=== PATIENT | female | born 1955 | race Hispanic/Latino ===

== ENCOUNTER 2018-10-20 06:27 | Observation (INO) | payer OTHER ==
[2018-10-15 11:32] LABS: BASOPHILS % 0.4 % (0.0-1.0); EOSINOPHILS # (AUTO) 0.1 (0.0-0.4); EOSINOPHILS % 1.1 % (0.0-6.0); HEMATOCRIT 43.1 % (34.2-44.1); HEMOGLOBIN 14.2 g/dL (12.0-16.0); LYMPHOCYTES # (AUTO) 1.3 (1.0-3.2); LYMPHOCYTES % 16.4 % (18.0-39.1); MEAN CORPUSCULAR HEMOGLOBIN 26.7 pg (28-32); MEAN CORPUSCULAR HGB CONC 32.9 g/dL (31-35); MEAN CORPUSCULAR VOLUME 81.2 fL (81-99); MONOCYTES # (AUTO) 0.4 (0.2-0.8); MONOCYTES % 4.9 % (4.4-11.3); NEUTROPHILS # (AUTO) 6.2 (2.1-6.9); NEUTROPHILS % 76.7 % (38.7-80.0); PLATELET COUNT 330 x10e3/uL (140-360); RED BLOOD COUNT 5.31 x10e6/uL (3.6-5.1); RED CELL DISTRIBUTION WIDTH 14.2 % (11.7-14.4)
[2018-10-15 11:46] LABS: BLOOD UREA NITROGEN 15 mg/dL (7-26); BUN/CREATININE RATIO 21 (6-25); CALCIUM 10.2 mg/dL (8.4-10.2); CARBON DIOXIDE 26 mmol/L (22-29); CHLORIDE 101 mmol/L (98-107); CREATININE, SERUM 0.72 mg/dL (0.57-1.11); EST GLOMERULAR FILTRATION RATE > 60 ML/MIN (60-); GLUCOSE 136 mg/dL (74-118); SODIUM 138 mmol/L (136-145)
[~2018-10-20] VITALS: Ht 162.6 cm; Wt 121.6 kg
[~2018-10-20 06:27] MED LIST: AMLODIPINE BESY10 MG PO; HYDROCHLOROTHIA25 MG PO; LISINOPRIL10 MG PO; METFORMIN HCL500 MG PO
[2018-10-20] MEDS ORDERED: CEFAZOLIN SOD 2 GM/D5W 50ML 50 ML IV ONE (06:46)
[2018-10-20] MEDS ORDERED: PROMETHAZINE HCL (IM) 25 MG/ML VIAL ONE (09:01)
[2018-10-20] MEDS ORDERED: DEXTROSE 50% SYRINGE 50 ML IV PRN (10:15)
[2018-10-20] MEDS ORDERED: ONDANSETRON HCL INJ 2MG/ML 2ML 2 MG/ML VIAL IV PRN (10:15)
[2018-10-20] MEDS ORDERED: MORPHINE SULFATE INJ 4 MG/ML INJ 1ML IV PRN (10:15)
[2018-10-20] MEDS ORDERED: FENTANYL CITRATE/PF 100MCG/2 ML INJ ONE ×2 (10:25→12:43)
--- NOTE | 2018-10-20 11:16 | Operative Report ---
DATE OF PROCEDURE: October 20, 2018 PREOPERATIVE DIAGNOSIS: Left thyroid mass. POSTOPERATIVE DIAGNOSIS: Left thyroid mass. PROCEDURES: Left thyroid lobectomy with isthmusectomy. LOCK SETTER: None. ANESTHESIA: General. INDICATIONS AND FINDINGS: Patient is a 63-year-old female who presented with a large mass in the left lobe of the thyroid. Biopsy revealed follicular cells, nondiagnostic for malignancy surgery. Patient had a large mass in the left lobe of the thyroid which was very friable. 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 TECHNIQUE: After adequate general endotracheal anesthesia, patient in supine position, the neck was prepped and draped in sterile fashion with ChloraPrep solution. Transverse incision made approximately 2 cm above the sternal notch, carried down through subcutaneous tissue and platysma. Subplatysmal flap was raised superiorly, inferiorly. Strap muscles were divided in the midline. Strap muscles dissected away from the left lobe of the thyroid. The left lobe was very large with a large mass. In order to facilitate exposure, the strap muscles were divided between clamps. The thyroid was mobilized by dividing the middle thyroid vein and was dissected free, divided between Hemoclips close to the thyroid. The recurrent laryngeal nerve was identified and preserved. As the thyroid was mobilized, the mass was very friable, was ruptured, and tumor fell from the mass and this was submitted for frozen section. As the mass was mobilized, vessels going into the thyroid were dissected free and divided between Hemoclips. Inferior parathyroid gland was identified and preserved. The recurrent laryngeal nerve also identified and preserved. As the gland was mobilized from lateral to medial, the vessels were divided between Hemoclips and the superior pole vessels then were dissected free and divided between Hemoclips close to the thyroid. Thyroid was then dissected off the trachea with one vessel from the trachea going to the thyroid, divided between Hemoclips. Care was taken that the nerve was not injured and a second parathyroid was also identified and this was preserved. 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 The divided thyroid suture ligated with 2-0 Vicryl. Hemostasis of the wound was seen to be adequate. It was irrigated with saline, inspected for hemostasis which was seen to be adequate. A 10-mm flat Dhaval-Zepeda drain was placed beneath the strap muscles through a separate stab wound incision. Strap muscles were reapproximated with interrupted sutures of 2-0 Vicryl, then reapproximated in the midline using running suture of 2-0 Vicryl. Platysma was then closed with running suture of 3-0 Vicryl. Skin was closed with running subcuticular suture of 4-0 Vicryl. Steri-Strips and sterile dressing were applied. The patient tolerated procedure well. Estimated blood loss was 40 mL. There were no complications. All counts were correct. Patient was taken to the recovery room in satisfactory condition. Job#: [id number] TA cc:JOHNATHAN MACHADO MD
[2018-10-20] MEDS: INSULIN REGULAR, HUMAN 100 UNIT/1 ML 3ML VIAL SQ SCH ×3 (11:30→21:00)
[2018-10-20] MEDS ORDERED: MIDAZOLAM HCL 2 MG/2 ML VIAL ONE (12:43)
[2018-10-20 14:12] VITALS: BP 126/67
[2018-10-20] MEDS ORDERED: METFORMIN HCL 500 MG TAB PO SCH (15:00)
[2018-10-20 15:35] VITALS: BP 126/67
[2018-10-20] MEDS: METFORMIN HCL 500 MG TAB PO SCH (17:17)
[2018-10-20] MEDS: HYDROCODONE/APAP 5MG-325MG TAB PO PRN (17:17)
[2018-10-20] MEDS ORDERED: ONDANSETRON HCL INJ 2MG/ML 2ML 2 MG/ML VIAL ONE (17:54)
[2018-10-20] MEDS ORDERED: ROCURONIUM BROMIDE 10 MG/ML 5ML VIAL ONE (17:54)
[2018-10-20] MEDS ORDERED: EPHEDRINE SULFATE INJ 50 MG/10 ML SYR ONE (17:54)
[2018-10-20] MEDS ORDERED: DEXAMETHASONE SOD PHOS INJ 4 MG/ML VIAL ONE (17:54)
[2018-10-20] MEDS ORDERED: SEVOFLURANE INHAL SOLN 250 ML PEN BTL ONE (17:54)
[2018-10-20] MEDS ORDERED: PHENYLEPHRINE HCL 1% 10 MG/ML VIAL ONE (17:54)
[2018-10-20] MEDS ORDERED: PROPOFOL IV EMULSION 10 MG/ML 20 ML VIAL ONE (17:54)
[2018-10-20] MEDS ORDERED: LIDOCAINE HCL 2% LOCAL INJ 5 ML SDV VIAL INJ ONE (17:54)
--- NOTE | 2018-10-20 18:34 | NUR ---
PT ADMITTED FROM PACU THIS AFTERNOON AFTER A THYROIDECTOMY. AAOX4. NO DISTRESS NOTED, GENERAL SKIN INTACT, DRESSING ON THE NECK INTACT WITH GERARDO DRAINING VERY MINIMAL.. V/S WNL AND MEDICATED FOR PAIN A/O WITH GOOD EFFECT. FAMILY IN ROOM, CONTINENT OF B/B. ORIENTED TO ROOM AND CALL LIGHT.
--- NOTE | 2018-10-20 19:40 | NUR ---
PATIENT RECEIVED. PATIENT IS RESTING IN BED, AAOX3. RESP EVEN AND UNLABORED. NO ACUTE DISTRESS NOTED. PATIENT DENIES OF ANY PAIN AT THIS TIME. DRESSING TO NECK NOTED, GERARDO DRAIN NOTED WITH MINIMAL DRAINAGE. FAMILY AT BED SIDE. CALL LIGHT WITHIN REACH. INSTRUCT TO CALL FOR ASSISTANCE. BED LOW/LOCKED. CONTINUE TO MONITOR CLOSELY
[2018-10-20 20:00] VITALS: BP 138/76
[2018-10-20] MEDS: DEXTROSE 5%/0.45% SOD CHL 1,000 ML IV SCH (21:51)
[2018-10-21] VITALS (7 sets, daily range): BP systolic 130–143; BP diastolic 66–86
[2018-10-21] MEDS: HYDROCODONE/APAP 5MG-325MG TAB PO PRN ×2 (05:25→17:10)
[2018-10-21] MEDS: DEXTROSE 5%/0.45% SOD CHL 1,000 ML IV SCH (05:25)
[2018-10-21 05:30] LABS: ANION GAP 12.4 mmol/L (8-16); BLOOD UREA NITROGEN 10 mg/dL (7-26); BUN/CREATININE RATIO 15 (6-25); CALCIUM 9.2 mg/dL (8.4-10.2); CARBON DIOXIDE 26 mmol/L (22-29); CHLORIDE 102 mmol/L (98-107); CREATININE, SERUM 0.66 mg/dL (0.57-1.11); EST GLOMERULAR FILTRATION RATE > 60 ML/MIN (60-); GLUCOSE 137 mg/dL (74-118); POTASSIUM 3.4 mmol/L (3.5-5.1); SODIUM 137 mmol/L (136-145)
[2018-10-21] MEDS ORDERED: AMLODIPINE BESYLATE 10 MG TAB PO SCH (09:00)
[2018-10-21] MEDS ORDERED: HYDROCHLOROTHIAZIDE 25 MG TAB PO SCH (09:00)
[2018-10-21] MEDS ORDERED: LISINOPRIL 10 MG TAB PO SCH (09:00)
[2018-10-21] MEDS: METFORMIN HCL 500 MG TAB PO SCH ×3 (09:40→17:10)
--- NOTE | 2018-10-21 19:39 | NUR ---
PT DISCHARGED HOME WITH PRESCRIPTION AND WRITTEN INSTRUCTIONS. IV D/C WITH NO S/S OF REDNESS OR SWELLING. GERARDO DRAIN INPLACED ORDERED BY MD, F/U APPOINTMENT ARRANGED BY PT FOR THURSDAY MD REQUESTED. PT EDUCATED ON CARE OF THE SITE AND DRAIN. SURGICAL SITE DRY AND INTACT. GERARDO DRAIN EMPTIED PRIOR TO D/C 15ML OF BLOODY DRAINAGE NOTED. PT VERBALIS UNDERSTANDING OF D/C INSTRUCTIONS. TRANSPORTED VIA W/C BY STAFF TO PRIVATE AUTO BY FAMILY.
== END 2018-10-21 19:35 | disposition home or self-care (01) ==
LOC: OR 06:27 → PACU V 10:15 → MED/SURG2 14:36
PROVIDERS: ADMIT Surgery; ATTEND Surgery
DX: D34 Benign neoplasm of thyroid gland (principal); I10 Essential (primary) hypertension; E11.9 Type 2 diabetes mellitus without complications; Z82.49 Family history of ischemic heart disease and other diseases of the circulatory system; Z83.3 Family history of diabetes mellitus; Z84.89 Family history of other specified conditions; Z79.84 Long term (current) use of oral hypoglycemic drugs; F41.9 Anxiety disorder, unspecified; Z01.810 Encounter for preprocedural cardiovascular examination; Z01.812 Encounter for preprocedural laboratory examination
CPT/HCPCS: 36415 ×3; 60225; 80048 ×2; 82948 ×2; 85025; 88305; 88307; 88313; 88331; 88342; 93005; 96360; 96361; G0378 ×2; J0690; J1100; J1817; J2001; J2250; J2370; J2405; J2550; J2704